=== PATIENT | female | born 1995 | race Two or more races ===

== ENCOUNTER 2018-10-18 04:40 | Emergency (ER) | payer SELFPAY ==
[2018-10-18 04:52] VITALS: BP 120/87; RESP 16; O2SAT 100
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
--- NOTE | 2018-10-18 05:57 | ED PDOC ---
- ECG O2 Sat by Pulse Oximetry: 100 (RA) Pulse Ox Interpretation: Normal Medical Decision Making Medical Decision Making: Time: 0600 Patient endorsed to me by Anh Acharya pending sobriety. Patient's friends are picking her up. py sober friends came. they will take care of her. pt awake and more alert. vital sstabel. pt w stable vitals. Scribe Attestation: Documented by Tato Andrew, acting as a scribe for Fazal Muhammad MD Provider Scribe Attestation: All medical record entries made by the Scribe were at my direction and personally dictated by me. I have reviewed the chart and agree that the record accurately reflects my personal performance of the history, physical exam, medical decision making, and the department course for this patient. I have also personally directed, reviewed, and agree with the discharge instructions and disposition. 21b: Disposition - Clinical Impression Clinical Impression: Alcohol abuse with intoxication, Alcohol ingestion - POA Present On Arrival: None - Disposition Disposition: Routine/Home Disposition Time: 06:00 Condition: IMPROVED Additional Instructions: follow up with your primary doctor in 1-2 days return to the ED with any worsening or concerning symptoms Instructions: Alcohol Use - When Is Drinking a Problem?, Effects of Alcohol on Your Health
[2018-10-18 06:44] VITALS: PULSE 77; TEMP 98.1
== END 2018-10-18 06:46 | disposition home or self-care (01) ==
LOC: H.ER 04:40
DX: F10.129 Alcohol abuse with intoxication, unspecified (principal)